=== PATIENT | male | born 2000 | race Caucasian/White ===

== ENCOUNTER 2024-08-31 21:41 | Emergency (ER) | payer SELFPAY ==
[2024-08-31 21:44] VITALS: BP 166/91; PULSE 100; RESP 16; TEMP 36.9; O2SAT 100; BMI 24.3
[2024-08-31 21:50] VITALS: BP 163/89; PULSE 100; O2SAT 99
[2024-08-31 21:57] LABS: Basophils % 0.2 %; Eosinophils # 0.2 10^3/uL (0.0-0.8); Eosinophils % 1.2 %; Hematocrit 41.8 % (37-53); Lymphocytes # 2.2 10^3/uL (0.8-4.8); Lymphocytes % 16.8 %; Mean Corpuscular HGB Conc 32.5 g/dL (30-55); Mean Corpuscular Hemoglobin 28.8 pg (27-33); Mean Corpuscular Volume 88.6 fl (82-101); Mean Platelet Volume 8.5 fL (7.4-10.4); Monocytes # 1.1 10^3/uL (0.2-0.9); Monocytes % 8.3 %; Neutrophils # 9.56 10^3/uL (1.8-7.7); Neutrophils % 73.3 %; Nucleated Red Blood Cells % 0 %; Platelet Count 277 10^3/cmm (157-399); Red Blood Count 4.72 10^6/uL (3.85-5.65); Red Cell Distribution Width 12.9 % (12.1-15.1); White Blood Count 13.07 10^3/uL (3.29-11.43)
[2024-08-31 22:16] LABS: Alanine Aminotransferase 57 U/L (0-41); Albumin Level 3.9 g/dL (3.5-5.2); Alkaline Phosphatase 103 U/L (40-130); Aspartate Amino Transferase 50 U/L (0-40); Blood Urea Nitrogen 8 mg/dL (6-20); Calcium 8.6 mg/dL (8.5-10.5); Carbon Dioxide 26 mmol/L (22-29); Chloride 105 mmol/L (98-107); Creatinine Clr Calc Pharmacy 167.9721; Globulin 2.2 g/dL (1.3-4.6); Glomerular Filtration Rate 139.8 mL/min (90-130); Glucose 102 mg/dL (65-115); Lipase 34 U/L (13-60); Osmolality Calculated 293 mOsm/kg (285-295); Sodium 142 mmol/L (136-145); Total Bilirubin 0.2 mg/dL (0.15-1.2); Total Protein 6.1 g/dL (6.6-8.7)
[2024-08-31 22:18] LABS: Anion Gap 14.6 (5-19); Potassium 3.6 mmol/L (3.5-5.1)
--- NOTE | 2024-08-31 22:18 | CTR_ITS ---
PROCEDURE INFORMATION: Exam: CT Abdomen And Pelvis With Contrast Exam date and time: 08/31/2024 10:27 PM Age: 23 years old Clinical indication: Abdominal pain; Additional info: Rlq pain TECHNIQUE: Imaging protocol: Computed tomography of the abdomen and pelvis with contrast. Radiation optimization: All CT scans at this facility use at least one of these dose optimization techniques: automated exposure control; mA and/or kV adjustment per patient size (includes targeted exams where dose is matched to clinical indication); or iterative reconstruction. Contrast material: [id number]; Contrast volume: 100 ml; Contrast route: INTRAVENOUS (IV); COMPARISON: No relevant prior studies available. RADIATION DOSE METRICS: Total DLP (mGy-cm): 516.36 FINDINGS: Liver: Normal. No mass. Gallbladder and biliary ducts: Normal. No calcified stones. No ductal dilation. Pancreas: Normal. No ductal dilation. Spleen: Normal. No splenomegaly. Adrenal glands: Normal. No mass. Kidneys and ureters: Normal. No hydronephrosis. Stomach and bowel: Unremarkable. No obstruction. No mucosal thickening. Appendix: No evidence of appendicitis. Intraperitoneal space: Unremarkable. No free air. No significant fluid collection. Vasculature: Unremarkable. No abdominal aortic aneurysm. Lymph nodes: Unremarkable. No enlarged lymph nodes. Urinary bladder: Unremarkable as visualized. Reproductive: Unremarkable as visualized. Bones/joints: Unremarkable. No acute fracture. Soft tissues: Unremarkable. CT/CT abdomen pelvis w con* [id number] IMPRESSION: No acute findings.
[2024-08-31 22:20] LABS: Bilirubin Urine Negative (Negative); Blood Urine Negative (Negative); Glucose Urine UA Negative (Normal); Ketones Urine Negative (Negative); Leukocyte Esterase Urine Negative (Negative); Nitrate Urine Negative (Negative); Protein Urine Negative (Negative); Specific Gravity, Urine 1.018 (1.005-1.030); Urine Appearance Clear (CLEAR); Urine Color Yellow (Yellow); pH Urine 7.5 (5-7)
--- NOTE | 2024-08-31 22:20 | ED_ITS ---
HPI - Abdominal Pain 2 General: Chief Complaint: Abdominal Pain Stated Complaint: abd pain Time Seen by Provider: 08/31/24 21:45 History of Present Illness: 23-year-old male patient complaining of 4 days of worsening right-sided abdominal pain. Radiates to his back. He has been nauseated. No vomiting. No blood in the stool. No fever. No history of belly surgery. Related Data Previous Rx's Medication Instructions Recorded ujlylzed-[id number]-dwnubhnxa 3.5 4 drp otic (ear) Q8H #10 mL 10/03/22 mg-10,000 unit/mL-1 % ear drops,susp ketorolac 10 mg tablet 10 mg PO TID PRN pain #10 tabs 08/31/24 ondansetron 4 mg disintegrating 4 mg PO Q6H PRN nausea and 08/31/24 tablet vomiting #14 tabs Allergies Allergy/AdvReac Type Severity Reaction Status Date / Time No Known Allergies Allergy Verified 08/31/24 21:50 PFSH ED 2 PFSH: Medical History Chest pain Myopericarditis Recreational drug use Social History Smoking and tobacco/nicotine status: current every day tobacco/nicotine user Current occupation: logging Physical Exam 2 Const: COMMON NORMALS: no acute distress GENERAL APPEARANCE: cooperative; not frail appearing HENMT: COMMON NORMALS: normocephalic, atraumatic and Normal external nose present HEAD & SCALP: normocephalic and atraumatic FACE & SINUS: normal facial exam and face symmetric NOSE: Normal external nose present Eye: COMMON NORMALS: Equal, round and reactive pupils present and EOMs intact bilaterally PUPIL: Yes Equal, round and reactive pupils present Neck/C-Spine: GENERAL: Yes trachea midline Chest: CHEST: Yes Symmetrical chest wall rise Resp: COMMON NORMALS: normal respiratory effort, No retractions, No use of accessory muscles and clear to auscultation bilaterally AUSCULTATION: clear to auscultation bilaterally Cardio: COMMON NORMALS: regular rate and regular rhythm RATE: regular rate RHYTHM: regular rhythm GI: COMMON NORMALS: Normal to inspection, nondistended, normoactive bowel sounds present PALPATION: Yes Tenderness to palpation present (GI) Details: RLQ and Yes Guarding due to palpation present (GI) Extremity: COMMON NORMALS: no pedal edema Neuro: JODY COMA SCALE: document GCS findings Jody coma scale eye opening: Spontaneous Jody coma scale verbal response: Orientated [place] coma scale motor response: Obey commands Jody coma scale total score: 15 S ENSORY EXAM: Yes extremities (intact) Psych: COMMON NORMALS: speech normal SPEECH: Yes normal speech Skin: COMMON NORMALS: no rashes or lesions noted GENERAL SKIN EXAM: no rashes or lesions noted Course 2 Vital Signs: Vital signs: Vital Signs Temperature 97.7 F 09/01/24 00:00 Pulse Rate 88 09/01/24 00:00 Respiratory Rate 18 09/01/24 00:00 Blood Pressure 138/86 09/01/24 00:00 Pulse Oximetry 100 09/01/24 00:00 Oxygen Delivery Me thod Room Air 08/31/24 23:30 MDM - Abdominal Pain Medical Decision Making 23-year-old male patient with right-sided abdominal pain. White blood cell count is 13. However CRP is 3. Other laboratories benign. No significant hematuria. CT shows no acute findings. No evidence of appendicitis. He will be allowed discharge. Lab Data 08/31/24 21:50 08/31/24 21:50 Labs/Radiology: Radiology Impressions Abdomen/Pelvis CT 08/31/24 22:18 IMPRESSION: No acute findings. Laboratory Results WBC 13.07 10^3/uL (3.29-11.43) H 08/31/24 21:50 RBC 4.72 10^6/uL (3.85-5.65) 08/31/24 21:50 Hgb 13.60 g/dL (11.27-16.99) 08/31/24 21:50 Hct 41.8 % (37-53) 08/31/24 21:50 MCV 88.6 fl (82-101) 08/31/24 21:50 MCH 28.8 pg (27-33) 08/31/24 21:50 MCHC 32.5 g/dL (30-55) 08/31/24 21:50 RDW 12.9 % (12.1-15.1) 08/31/24 21:50 Plt Count 277 10^3/cmm (157-399) 08/31/24 21:50 MPV 8.5 fL (7.4-10.4) 08/31/24 21:50 Neut % (Auto) 73.3 % 08/31/24 21:50 Lymph % (Auto) 16.8 % 08/31/24 21:50 [place] % (Auto) 8.3 % 08/31/24 21:50 Eos % (Auto) 1.2 % 08/31/24 21:50 Baso % (Auto) 0.2 % 08/31/24 21:50 Neut # (Auto) 9.56 10^3/uL (1.8-7.7) H 08/31/24 21:50 Lymph # (Auto) 2.2 10^3/uL (0.8-4.8) 08/31/24 21:50 [place] # (Auto) 1.1 10^3/uL (0.2-0.9) H 08/31/24 21:50 Eos # (Auto) 0.2 10^3/uL (0.0-0.8) 08/31/24 21:50 Baso # (Auto) 0.0 10^3/uL (0.0-0.1) 08/31/24 21:50 Nucleated RBC % (auto) 0 % 08/31/24 21:50 Nucleated RBCs # 0.0 /100WBC 08/31/24 21:50 Sodium 142 mmol/L (136-145) 08/31/24 21:50 Potassium 3.6 mmol/L (3.5-5.1) 08/31/24 21:50 Chloride 105 mmol/L (98-107) 08/31/24 21:50 Carbon Dioxide 26 mmol/L (22-29) 08/31/24 21:50 Anion Gap 14.6 (5-19) 08/31/24 21:50 BUN 8 mg/dL (6-20) 08/31/24 21:50 Creatinine 0.7 mg/dL (0.7-1.2) 08/31/24 21:50 GFR Calculation 139.8 mL/min (90-130) H 08/31/24 21:50 Glucose 102 mg/dL (65-115) 08/31/24 21:50 Calculated Osmolality 293 mOsm/kg (285-295) 08/31/24 21:50 Calcium 8.6 mg/dL (8.5-10.5) 08/31/24 21:50 Total Bilirubin 0.2 mg/dL (0.15-1.2) 08/31/24 21:50 AST 50 U/L (0-40) H 08/31/24 21:50 ALT 57 U/L (0-41) H 08/31/24 21:50 Alkaline Phosphatase 103 U/L (40-130) 08/31/24 21:50 C-Reactive Protein 3.0 mg/L (0.0-4.9) 08/31/24 21:50 Total Protein 6.1 g/dL (6.6-8.7) L 08/31/24 21:50 Albumin 3.9 g/dL (3.5-5.2) 08/31/24 21:50 Globulin 2.2 g/dL (1.3-4.6) 08/31/24 21:50 Lipase 34 U/L (13-60) 08/31/24 21:50 Urine Color Yellow (Yellow) 08/31/24 22:09 Urine Appearance Clear (CLEAR) 08/31/24 22:09 Urine pH 7.5 (5-7) 08/31/24 22:09 Ur Specific [place] 1.018 (1.005-1.030) 08/31/24 22:09 Urine Protein Negative (Negative) 08/31/24 22:09 Urine Glucose (UA) Negative (Normal) 08/31/24 22:09 Urine Ketones Negative (Negative) 08/31/24 22:09 Urine Blood Negative (Negative) 08/31/24 22:09 Urine Nitrate Negative (Negative) 08/31/24 22:09 Urine Bilirubin Negative (Negative) 08/31/24 22:09 Urine Urobilinogen 1.0 mg/dL (Negative) 08/31/24 22:09 Ur Leukocyte Esterase Negative (Negative) 08/31/24 22:09 Urine RBC 0-2 /hpf (0-2) 08/31/24 22:09 Urine WBC 11-20 /hpf (0-5) H 08/31/24 22:09 Ur Squamous Epith Cells 0-5 /hpf (0-5) 08/31/24 22:09 Amorphous Sediment Not Reportable 08/31/24 22:09 Urine Bacteria None seen /hpf (NONE) 08/31/24 22:09 Hyaline Casts 0-4 /lpf H 08/31/24 22:09 Urine Opiates Screen Negative ng/mL (Negative) 08/31/24 22:09 Ur Barbiturates Screen Negative ng/mL (Negative) 08/31/24 22:09 Ur Phencyclidine Scrn Negative ng/mL (Negative) 08/31/24 22:09 Ur Amphetamines Screen Negative ng/mL (Negative) 08/31/24 22:09 U Benzodiazepines Scrn Negative ng/mL (Negative) 08/31/24 22:09 Urine Cocaine Screen Negative ng/mL (Negative) 08/31/24 22:09 U Marijuana (THC) Screen Positive ng/mL (Negative) H 08/31/24 22:09 All radiology interpretation(s) finalized by discharge Discharge Plan Discharge Patient Disposition: Home Clinical Impression: Abdominal pain Condition: Stable Prescriptions: New ketorolac 10 mg tablet 10 mg PO TID PRN (Reason: pain) Qty: 10 0RF ondansetron 4 mg tablet,disintegrating 4 mg PO Q6H PRN (Reason: nausea and vomiting) Qty: 14 0RF No Action [id number]-[id number]-GA 3.5-10,000-1 mg/mL-unit/mL-% drops,suspension 4 drp otic (ear) Q8H Qty: 10 0RF Discharge Orders: Discharge ED (Routine); Ordered 08/31/24 Ordered By: Jose Huerta Referrals: Sandy Chavira FNP [Primary Care Provider] - 1-3 days Teri Bautista FNP [Family Provider] - Patient Instructions: Abdominal Pain (ED), Opioid Safety, Pain Management Activity Restrictions/Additional Instructions: Drink plenty of liquids for the next 48 hours. Return for fever greater than 100, vomiting liquids or medications, worsening pain despite treatment, any other concerning symptoms. Medication as directed for pain or nausea. Coding Level of Care Code ED Exhibit Electrician for Benny Dawn
[2024-08-31 22:24] LABS: Add Urine Microscopic? YES; Bacteria Urine None Seen /hpf; Hyaline Casts Urine 0-4 /lpf; RBC Urine 0-2 /hpf (0-2); Squamous Epithelial Cell Urine 0-5 /hpf (0-5)
[2024-08-31 22:27] LABS: Amphetamines Screen Urine Negative (Negative); Barbiturates Screen Urine Negative (Negative); Benzodiazepines Screen Urine Negative (Negative); Cocaine Screen Urine Negative (Negative); Opiate Screen Urine Negative (Negative); PCP Screen Urine Negative (Negative); THC Screen Urine Positive (Negative)
[2024-08-31] MEDS: iohexol 350 mg/mL 500 mL Btl (per mL) IV (22:28)
[2024-08-31] MEDS: ondansetron 2 mg/ML SDV 2 mL 4 MG IVP (22:34)
[2024-08-31] MEDS: ketorolac 30 mg/mL INJ IVP (22:35)
[2024-08-31 22:36] VITALS: RESP 18; O2SAT 99
[2024-08-31] MEDS: morphine 4 mg/mL SDV 1 mL IVP (22:36)
[2024-08-31 22:37] VITALS: BP 186/108; PULSE 91; O2SAT 99
[2024-08-31 23:00] VITALS: BP 120/73; PULSE 83; RESP 18; O2SAT 97
[2024-08-31 23:30] VITALS: BP 111/60; PULSE 86; RESP 16; O2SAT 99
[2024-09-01] VITALS: BP 138/86; PULSE 88; RESP 18; TEMP 36.5; O2SAT 100
[2024-09-01] MEDS: ondansetron 4 MG Tablet 8 MG PO (00:11)
== END 2024-09-01 00:15 | disposition home or self-care (01) ==
PROVIDERS: Emergency Provider Emergency Medicine; Family Provider Nurse Practitioner; PCP Nurse Practitioner
DX: R10.9 Unspecified abdominal pain (principal); Z72.0 Tobacco use
CPT/HCPCS: 74177; 80053; 80306; 81001; 83690; 85025; 86140; 96374; 96375; 99285; J1885; J2270; J2405; Q0162

== ENCOUNTER → 2025-04-29 11:11 | Outpatient (BNVA) | payer BC, MEDICAID, SELFPAY | PROVIDERS: Family Provider Nurse Practitioner Family; PCP Nurse Practitioner Family; Visit Provider Nurse Practitioner Family | DX: F41.9 Anxiety disorder, unspecified (principal); Z79.899 Other long term (current) drug therapy; Z13.6 Encounter for screening for cardiovascular disorders; F19.11 Other psychoactive substance abuse, in remission; Z87.898 Personal history of other specified conditions | CPT/HCPCS: 80053; 80061; 81003; 82306; 83036; 84439; 84443; 85025 ==